=== PATIENT | male | born 1980 | race Caucasian/White ===

== ENCOUNTER 2018-04-13 18:51 | Emergency (ER) | payer OTHER ==
[~2018-04-13] VITALS: Ht 188 cm; Wt 102.8 kg
[2018-04-13 18:55] VITALS: TEMP 36.8; Ht 188 cm; Wt 102.8 kg
[2018-04-13] MEDS ORDERED: CEFTRIAXONE SOD 350MG/ML 1 GM VIAL IM STA (19:10)
[2018-04-13] MEDS ORDERED: AZITHROMYCIN 250 MG TAB PO STA (19:10)
--- NOTE | 2018-04-13 19:35 | EMERGENCY ROOM VISIT NOTE ---
History First contact with patient: 18:57 Chief Complaint: STD MALE Stated Complaint: STD TEST Nursing Triage Summary: Pt requesting STD testing, denies symptoms. History of Present Illness The patient is a 37 year old male who presents to the Emergency Room via private vehicle with complaints of "STD test". The patient states that he would like to be tested for any STD and treated as he notes that he had a relation with a female this past Wednesday that was unprotected and was called by them indicating they had an STD/infection and were treated with antibiotics. He notes he has no symptoms. He notes he would like to be tested. Review of Systems A complete 6-point Review of Systems was discussed with the patient, with pertinent positives and negatives listed in the History of Present Illness. All remaining Review of Systems questions can be considered negative unless otherwise specified. Past Medical/Surgical History No pertinent. Family History Kidney disease Kidney stones Social History Smoking Status: Never Smoker Alcohol Use: none Occupation Status: employed Current/Historical Medications No Active Prescriptions or Reported Meds Physical Exam Vital Signs Date Time Temp Pulse Resp B/P (MAP) Pulse Ox O2 Delivery O2 Flow Rate FiO2 04/13/18 19:48 80 18 125/85 98 04/13/18 18:55 36.8 98 18 144/89 98 Room Air Physical Exam VITAL SIGNS - Vital signs and nursing notes were reviewed. Stable. Afebrile. GENERAL -37-year-old male appearing his stated age who is in no acute distress. Communicates well with provider and answers questions appropriately. SKIN - Without rashes. The genitalia is unremarkable to inspection. No tenderness. No discharge. No lesion. Medical Decision & Procedures Laboratory Results Test 04/13/18 19:20 Medications Administered Medications (Trade) Dose Ordered Sig/Jaida Route Start Time Stop Time Status Last Admin Dose Admin Ceftriaxone Sodium (Rocephin Im) 250 mg NOW STAT IM 04/13/18 19:10 04/13/18 19:12 DC 04/13/18 19:28 250 MG Azithromycin (Zithromax Tab) 1,000 mg NOW STAT PO 04/13/18 19:10 04/13/18 19:12 DC 04/13/18 19:25 1,000 MG Medical Decision Patient was seen and evaluated as above in room D5. Review was performed of nursing notes and vital signs. After obtaining a thorough history and physical examination the above work up was performed. He presents today with request for STD testing. He provided a urine sample however was able to obtain a urethral swab which I believe given that this was not the first urine of the day , should be obtained via swab. He tolerated this very well. No discharge. No abnormality to examination. He was treated with Rocephin and azithromycin empirically for any gonorrhea or chlamydia. It was later in his stay that it was identified that the partner likely had a yeast infection, however believe that treatment provided here was appropriate given the encounter. The patient noted that he has not had any relations with his since the event that occurred with the female this past weekend. He is to follow with the [facility] for HIV or hepatitis testing if he wishes. The patient was educated upon management, had questions answered prior to discharge, and was discharged home in good condition. In the evaluation and treatment of this patient the following differential diagnoses were entertained: STI, among others Impression Primary Impression: sti testing Departure Information Dispostion Home / Self-Care Condition GOOD Prescriptions No Active Prescriptions or Reported Meds Referrals No Doctor, Assigned (PCP) Patient Instructions My [facility] Additional Instructions You were seen in the emergency department for testing for sexually transmitted infections. At this time you been treated for any gonorrhea or chlamydia. If you do not hear back from us within 48 hours these are likely negative, however if you would like to know definitive answers please call here at [phone]. For HIV and hepatitis testing please refer to the [place]. [facility] [address], [place] [address] If you develop any symptoms please return Please return with any new/concerning symptoms.
[2018-04-13 19:48] VITALS: BP 125/85; PULSE 80; O2SAT 98
== END 2018-04-13 19:49 | disposition home or self-care (01) ==
LOC: C.EDB 18:51 → C.EDD 19:49
DX: Z20.2 Contact with and (suspected) exposure to infections with a predominantly sexual mode of transmission (principal)